=== PATIENT | male | born 1955 | race Caucasian/White ===

== ENCOUNTER 2023-07-18 18:15 | Inpatient (IN) | payer OTHER, SELFPAY ==
--- NOTE | 2023-07-18 | IMM_PTH ---
PATIENT: GABI WALSH LOC: MS3 U#:[id number] AGE/SX: 67/M ROOM: NH314 RE07/19/[address]: Dr. Moo Dumont MD : 1955 BED: 1 DIS: 07/24/2023 SPEC #: [id number] RECD: 07/24/23 13:55 STATUS: NICHOLE REQ #: [id number] LANG: 07/18/23 00:[address]: Moo Dumont DEPT: IMMUNOHISTOCHEMISTRY RECD BY: Jerson Biswas ENTERED: 07/24/23 13:57 SP TYPE: IMMUNO OTHR DR: Dr. Twan Juarez MD Tissues: Colon, NOS Procedures: MSH2 (add) MLH-1 (add) MSH6 (add) Anti-PMS2 (add) CK8 (add) KI-67 (add) P53 (add) Pankeratin (add) MOC-31 (add) HER-2-RIAZ (initial) PHYSICIAN & [address] [address] SPECIMEN INFORMATION: Tissue Source: Right and transverse colon Clinical Info: Colon cancer, Colon obstruction Specimen Number: [id number] Block 6&44 CPT code: 82740,40283f1 METHODOLOGY: Deparaffinized sections of prefer/formalin-fixed tissue or PAP/DQ stained slides are incubated with monoclonal/polyclonal antibodies/oligonucleotide probes. Localization is made via biotin free immunoperoxidase method. Appropriate controls are performed and reacted as expected. Results on target cell population are indicated in the following table: RESULTS: ANTIBODY / CLONE RESULT Block 6 Her-2neu (CB11) negative MOC-31 (4561) positive MLH1 (M1) negative MSH2 (25D12) positive, focal MSH6 (44) positive PMS2 (VNT7883) positive P53 (DO-7) negative,( null pattern) Ki-67 (30-9) positive, high >95% Block 44 AE1-3 (AE1/AE3/PCK26) positive, weak CK8 (64tumtM29) positive These tests were developed and their performance characteristics determined by [facility]. They may not have been cleared or approved by the U.S. Food and Drug Administration. The FDA has determined that such clearance or approval is not necessary. The above immunohistochemical/dualISH markers are ordered and reviewed by the Pathologist. INTERPRETATION: Right and transverse colon: Invasive carcinoma. Result of Microsatellite Instability Study (block #6): Positive (loss of mismatch protein; microsatellite instability detected). Complete loss of MLH1. One out of 5 lymph nodes positive for metastatic carcinoma (block #44J). Case has been reviewed in consultation with Dr. Duckworth who concurs with the above diagnosis. IDC:NOREEN MARTEL/ 07/25/23
--- NOTE | 2023-07-18 | COL._PTH ---
PATIENT: GABI WALSH LOC: MS3 U#:[id number] AGE/SX: 67/M ROOM: AL314 RE07/19/[address]: Dr. Moo Dumont MD : 1955 BED: 1 DIS: 07/24/2023 SPEC #: [id number] RECD: 07/18/23 02:18 STATUS: NICHOLE COLEMAN #: [id number] LANG: 07/18/23 00:[address]: Moo Dumont DEPT: SURGICAL PATHOLOGY RECD BY: Poncho Jo ENTERED: 07/19/23 09:54 SP TYPE: COLON OTHR DR: Dr. Twan Juarez MD Tissues: Colon, NOS Procedures: Surgery Specimen Level HEADER OPERATION: Colectomy Anthony PRE-OP DIAGNOSIS: Colon cancer, Colon obstruction TISSUE SUBMITTED: Right and transverse colon MICROSCOPIC DIAGNOSIS Right and transverse colon, hemicolectomy: Poorly differentiated invasive adenocarcinoma. See cancer summary in comment section. DELONTE/ 07/24/23 COMMENT COLON CANCER SUMMARY Procedure: Hemicolectomy, right and transverse colon Tumor site: Transverse colon Tumor size: 12.0 x 10.0 x 8.0cm Macroscopic tumor perforation: Not identified Histologic type: Adenocarcinoma with focal mucinous differentiation The tumor also shows extensive area of necrosis. Mucinous differentiation consists about <5% of the total tumor volume. Histologic grade: G3 (poorly differentiated) Tumor extension: Tumor invades through the muscularis propria into pericolonic adipose tissue. Margins: Margins are uninvolved by invasive carcinoma, high grade dysplasia, intramucosal adenocarcinoma and adenoma. Tumor is 11.8cm of away from the closest distal resection margin. Treatment effect: No known presurgical treatment therapy Lymphvascular invasion: Not identified Perineural invasion: Not identified Type of polyp in which invasive carcinoma arose: None identified Tumor deposits: Present Number of tumor deposits: 1 Regional lymph nodes: Number of lymph nodes examined: 62 Number of lymph nodes involved: 5 Largest focus of metastasis measures 1.0 x 1.0cm (measure microscopically) Extranodal extension is not identified Ancillary studies: See microsatellite instability study by IHC ([id number]) for complete details. Positive (loss of mismatch protein; microsatellite instability detected). complete loss of MLH1 Additional pathologic findings: Appendix with luminal obliteration. PATHOLOGIC STAGE: pT3 pN2a pMx The above summary is in compliance with [employer] (CAP) Cancer Protocols Checklist and [place] [employer] Committee on Cancer (AJCC), Staging Manual, 8th Ed. Case has been reviewed in consultation with Dr. Duckworth who concurs with the above diagnosis. IDC:AM MICROSCOPIC DESCRIPTION Slides are reviewed. GROSS DESCRIPTION Received fresh labeled with the patient's name is a specimen designated Colon. The specimen consists of 58.5cm of large bowel with attached 17cm small bowel and attached 6.2cm of appendix that has a diameter of 1.0cm. Located 11.8cm from the closest (distal) margin of excision is a large fungating apple core mass bain-grayish in color measuring 12.0 x 10.5 x 8.0cm. No gross perforation is identified. The bowel contains abundant fecal material and is dilated proximal to the mass. No other mucosal mass lesions are identified. The ileocecal valve is grossly unremarkable. Sections through the tumor reveal extension through the bowel wall into the pericolonic adipose tissue. The attached fibrofatty tissue contains a number of enlarged lymph nodes. The specimen is left for additional fixation. / 07/19/23 Sections of appendix reveal luminal obliteration. Section of the tumor reveal focal area of necrosis. Focally the tumor appears to be close to the serosal resection margin. Largest lymph node measures 3.0cm in greatest dimension. Mold Repairer sections are submitted as follows: 1- Proximal and distal resection margins, 2- Appendix, 3- Mold Repairer sections of small and large intestines and ileocecal valve, 4-9- Tumor. Cassettes 7-9 contains the closest serosal resection margin. 10-31-each cassette containing one lymph node,32-34- One serially sectioned lymph node largest lymph node, 35-39- each cassette with one lymph node, 40-45- Multiple lymph nodes, 46-Omentum, 47- Indurated area of pericolonic adipose tissue. / 07/20/23 TC:0 CPT: 75306
[2023-07-18 18:15] VITALS: BP 175/111; PULSE 100; RESP 18; TEMP 530.9; TEMP 987.7; O2SAT 98; BMI 32.0
--- NOTE | 2023-07-18 18:42 | CT_ITS ---
We are attempting to reach an attending provider to discuss findings. An addendum with communication details will be sent when the communication is complete. STUDY: CT ABDOMEN AND PELVIS WITH CONTRAST REASON FOR EXAM: Male, 67 years old. abd pain with known r-sided colon cancer RADIATION DOSAGE (If Supplied By Facility): CTDIvol = ( 16.06 ) mGy, DLP = ( 1264.07 ) mGycm TECHNIQUE: Transaxial images were obtained from the dome of the diaphragm to the symphysis pubis without oral contrast. IV 100mL Isovue-300 was administered. Sagittal and coronal images were reconstructed. Individualized dose optimization techniques were used for this CT. COMPARISON: None. FINDINGS: The visualized lung bases are unremarkable. The visualized portions of the heart are within normal limits. Normal liver. Normal gallbladder and extrahepatic biliary system. Normal spleen. Normal pancreas. Normal bilateral adrenal glands. Normal right kidney. Normal left kidney. Normal visualized stomach. There are multiple loops of mildly distended small bowel and ascending proximal to a loop demonstrating severe concentric thickening of the cabrera of the proximal transverse colon with narrowing of the lumen in association with a large mass measuring approximately 9.1 x 5.8 cm with extensive stranding in the fat. There also multiple mildly enlarged mesenteric nodes. No evidence for acute appendicitis.. Normal abdominal aorta. Normal inferior vena cava. Normal retroperitoneum. Normal urinary bladder. Amount of fluid noted within the pelvis. Bilateral fat-containing inguinal hernias. Lumbar spine demonstrates degenerative changes. CT/Abdomen/Pelvis W IV Cont ONLY IMPRESSION: Findings consistent with partially obstructing mass in the proximal transverse colon may be consistent with carcinoma in association with mesenteric adenopathy and moderate amount of ascites Electronically Signed: Star Gamble MD at 20:21 EDT ,
--- NOTE | 2023-07-18 18:43 | EDS_ITS ---
HPI HPI - GI History of Present Illness Chief Complaint: Abd Pain Informant: patient and spouse/S.O. Abdominal Pain/Flank Pain Onset: Today Timing: Intermittent Location: Diffuse and RUQ Current Severity: Mild Maximum Severity: Moderate Worsened by: Nothing Relieved by: Nothing Nausea/Vomiting/Emesis GI Symptom: Negative for Nausea or Vomiting Diarrhea/Melena/Hematochezia GI Symptom: Negative for Diarrhea, Melena or Hematochezia Associated Symptoms Associated Symptoms: Negative for Dysuria, Frequency, Hematuria or Urgency Narrative Narrative: 67-year-old male known history of right-sided colon cancer has upcoming surgery at [facility] in the system in 2 weeks on July 29. Basically developed abdominal pain last night and this morning. Denies any dysuria. No nausea or vomiting. No fever. No dysuria. He did have a bowel movement last 24 hours. Prior similar symptoms: Yes Recent Illness/Hospitalization: No PFSH PFSH Home Medications ascorbic acid (vitamin C) 1,000 mg tablet (C-1000) 2 g PO DAILY 07/18/23 [History Last Taken Unknown] cholecalciferol (vitamin D3) 25 mcg (1,000 unit) capsule (Vitamin D3) 125 mcg PO DAILY 07/18/23 [History Last Taken Unknown] iron 50 mg iron tablet 1 tab PO DAILY 07/18/23 [History Last Taken Unknown] pantoprazole 40 mg tablet,delayed release 40 mg PO QPM PRN indigestion 07/18/23 [History Last Taken Unknown] pyridoxine (vitamin B6) 100 mg tablet (Vitamin B-6) 100 mg PO DAILY 07/18/23 [History Last Taken Unknown] selenium 200 mcg capsule 200 mcg PO DAILY 07/18/23 [History Last Taken Unknown] Allergy/AdvReac Type Severity Reaction Status Date / Time No Known Allergies Allergy Verified 07/18/23 18:18 Social History Smoking Status: Never smoker ROS ROS ED ROS Narrative Abdominal pain. Review of Systems ROS Unobtainable: Denies due to encephalopathy Constitutional Constitutional ED: Denies chills or fever(s) ENT ENT ED: Denies ear pain Cardiovascular Cardiovascular: Denies chest pain Respiratory/Chest Respiratory/Chest: Denies cough or dyspnea Gastrointestinal Gastrointestinal: Reports abdominal pain; Denies constipation, diarrhea, melena, nausea or vomiting Genitourinary Genitourinary ED: Denies dysuria or hematuria Musculoskeletal Musculoskeletal: Denies arthralgias, back pain, myalgias or neck pain Integumentary Denies abscess or Abrasions Neurologic Neurologic: Denies headache(s) Psychiatric Psychiatric: Denies anxiety Endocrine Endocrinology: Denies polydipsia Hematologic/Lymphatic Hematologic/Lymphatic: Denies easy bleeding Allergic/Immunologic Allergic/Immunologic ED: Denies mouth swelling, tongue swelling or urticaria EXAM Physical Exam Narrative Exam Narrative: Well-appearing 67-year-old male. Vital signs are stable afebrile. Initial blood pressure elevated 175/111. HEENT exam unremarkable. Neck nontender. Lungs clear to auscultation bilaterally. Heart regular rhythm no murmur. Rate about 100. Abdomen distended. Soft. Tender in the right side. No peritoneal signs. No hernia appreciated. Moving all 4 extremities. Nontender no edema. Neurologically patient is awake alert no focal motor deficits. Moving all 4 extremities.. Nontender no edema. Neurologically is awake alert no focal motor deficits. Const Vital Signs: 07/18/23 18:15 07/18/23 20:15 07/18/23 22:00 Temperature 987.7 F H Temperature Source Temporal Pulse Rate 100 80 91 Respiratory Rate 18 16 14 Blood Pressure 175/111 H 175/103 H 153/103 H Blood Pressure Mean 132 127 119 Pulse Ox 98 97 93 Oxygen Delivery Method Room Air Room Air Room Air 07/18/23 22:34 Temperature 98.1 F Temperature Source Pulse Rate 90 Respiratory Rate 17 Blood Pressure 165/97 H Blood Pressure Mean 119 Pulse Ox 94 Oxygen Delivery Method Positive well nourished and well developed; Negative for cachectic, contractures or unkempt General Appearance ED: well developed and NAD; Negative for unkempt, cachectic, contractures or pallor Nutritional Appearance: Negative for cachectic HEENT Reports moist mucous membranes; Denies dry mucous membranes normocephalic and atraumatic; Negative for trauma or tenderness Mouth ED: No dry mucous membranes Mouth: No dry mucous membranes Eyes PERRL and EOMs intact bilaterally General Eye ED: Negative for pale conjunctiva or scleral icterus Neck no lymphadenopathy, supple and no JVD General: Negative for tenderness Carotids: Negative for other Lymph Lymphatic: Negative for other Resp normal respiratory effort and clear to auscultation bilaterally Effort and Inspection: Negative for respiratory distress Auscultation: Negative for rales, rhonchi or wheezes Cardio regular rate, regular rhythm, S1 normal heart sound and no murmurs Rate: Negative for bradycardia or tachycardic Rhythm: Negative for abnormal rhythm GI Negative for non-tender or non-distended Inspection: abdominal distention Palpation: soft and tender; Negative for guarding or rebound tenderness present Back/Spine no CVA tenderness General Back: Negative for CVA tenderness Cervical Spine: Negative for cervical spine tenderness Thoracic Spine / Upper Back: Negative for thoracic spinal tenderness Lumbar Spine / Lower Back: Negative for lumbar spinal tenderness Extremity full ROM General Extremety ED: Negative for edema or tenderness General Extremity: Negative for edema Neuro CN's II-XII intact bilaterally and moves all extremities Sensorium / Orientation: alert, oriented to person, oriented to place and oriented to time; Negative for orientation impaired, confused, lethargic or stuporous Motor Exam: strength 5/5 throughout; Negative for general weakness or strength abnormal Psych mental status grossly normal and thought process normal Appearance: Negative for unkempt Attitude: No agitated Mood & Affect: Negative for depressed, anxious or tearful Skin no wounds General Skin Exam: Negative for jaundice or pallor Lesions: no lesions Rashes: no rashes Trauma: Negative for abrasion Nails: Negative for discolored MDM MDM MDM Narrative Medical decision making narrative: 67-year-old male with known right; CEA pending upcoming surgery on the . Complaining of abdominal pain tonight. CAT scan labs are pending. Currently he did not want a thing for pain or nausea. Repeat exam patient is resting comfortably at this time at 9:15 PM. I am trying to get a hold of his surgeon from [facility] a Dr. Jimmy Carbone. I was able to speak to Dr. Carbone. He was willing accept the patient to [facility]. [facility] currently has no beds and do not know when they will have bed availability. I spoke to my general surgeon here Dr. Moo Rain who will be in to evaluate the patient determine admission versus if he needs to do a surgical procedure on the patient tonight. Patient and his are aware they are comfortable with the plan. History & Record Review Discussion w/independent historian: Patient and Family Additional record(s) reviewed:: No prior records Lab Data Attestation: I reviewed the patient's lab results. Lab results narrative: CBC shows white count 13.1. H&H 10.6 and 33. I do not have old labs in our system for comparison. Platelets 470. Electrolytes show gap is 7. Normal BUN of 12 creatinine 0.9. Glucose 123. Liver enzymes normal. Lipase normal at 31. CAT scan of the abdomen shows a colonic mass with partial small bowel obstruction. I discussed this with the radiologist. Labs: Laboratory Results - last 24 hr 07/18/23 19:10 WBC 13.1 H RBC 4.14 L Hgb 10.6 L Hct 33.0 L MCV 79.7 L MCH 25.6 L MCHC 32.1 RDW Std Deviation 41.1 RDW Coeff of Ayaka 14.3 Plt Count 470 H MPV 8.3 Immature Gran % (Auto) 0.500 Neut % (Auto) 84.2 H Lymph % (Auto) 8.2 L Becker % (Auto) 6.0 Eos % (Auto) 0.6 Baso % (Auto) 0.5 Absolute Neuts (auto) 11.1 H Absolute Lymphs (auto) 1.07 Nucleated RBC % 0 Sodium 136 Potassium 3.9 Chloride 101 Carbon Dioxide 28.0 Anion Gap 7 BUN 12 Creatinine 0.90 Estim Creat Clear Calc 99.21 Est GFR (MDRD) Af Amer 109 Est GFR (MDRD) Non-Af 90 BUN/Creatinine Ratio 13.4 Glucose 123 H Calcium 9.0 Total Bilirubin 0.30 AST 24 ALT 30 Alkaline Phosphatase 73 Total Protein 6.8 Albumin 2.8 L Globulin 4.0 Albumin/Globulin Ratio 0.7 L Lipase 31 Radiography Diagnostic Testing: Clinical Impression(s) from Imaging Studies Abdomen/Pelvis CT 07/18/23 18:42 IMPRESSION: Findings consistent with partially obstructing mass in the proximal transverse colon may be consistent with carcinoma in association with mesenteric adenopathy and moderate amount of ascites Electronically Signed: Star Gamble MD at 20:21 EDT , ADDENDUM: 07/18/232051 IMPRESSION: Findings consistent with partially obstructing mass in the proximal transverse colon may be consistent with carcinoma in association with mesenteric adenopathy and moderate amount of ascites N.B. : The above Results were Read Back by Star Gamble MD to Polo Sanders MD, and understanding confirmed on 07/18/2023 20:45:07 (ET). Electronically Signed: Star Gamble MD at 20:21 EDT , Rhythm Strip Rhythm Strip: Sinus Rhythm Rate: 96 Ectopy: None EKG Initial EKG: Attestation: I personally reviewed and interpreted this EKG as follows: Interpretation: Sinus Rhythm and No Acute Injury Pattern Comments: Preop EKG. Patient going to the OR. Normal sinus rhythm. Rate of 96. No acute signs of IA nor ischemia nor dysrhythmia. Prior EKG tracings: not available for review Prior: No Prior Discharge Plan Dx/Rx/DC Orders Clinical Impression: Colon cancer, Abdominal pain, Partial obstruction of small intestine, Colon obstruction Disposition Disposition: Acute Care [facility], [place]
[2023-07-18 19:15] LABS: Absolute Lymphocyte Count 1.07 X10^3/uL (0.83-4.51); Absolute Neutrophil Count 11.1 X10^3/uL (2.0-7.7); Basophil# 0.06 X10^3/uL; Basophil% 0.5 % (0-1); Eosinophil# 0.08 X10^3/uL; Eosinophils% 0.6 % (0-5); Hemoglobin 10.6 g/dL (13.0-16.5); Lymphocyte # 1.07 X10^3/ul (0.83-4.51); Lymphocyte % 8.2 % (19-41); Mean Corp Hgb Conc 32.1 g/dL (32-36); Mean Corpuscular Hgb 25.6 pg (27.0-32.0); Mean Corpuscular Volume 79.7 fL (80-94); Mean Platelet Vol. 8.3 fl (6.2-12.0); Monocyte# 0.79 X10^3/uL; NRBC Flagged by Analyzer 0 % (0-5); Neutrophil # 11.05 X10^3/uL (2.7-7.7); Neutrophil % 84.2 % (47-70); Platelet Count 470 K/mm3 (150-450); RBC Distribution Width CV 14.3 % (11.6-14.6); RBC Distribution Width SD 41.1 fl (35.1-43.9); Red Blood Count 4.14 M/mm3 (4.6-6.2); White Blood Count 13.1 K/mm3 (4.4-11.0)
[2023-07-18 19:32] LABS: ALB/GLOB Ratio 0.7 RATIO (0.9-2.4); AST(SGOT) 24 U/L (15-37); Alanine Aminotransfer ALT/SGPT 30 U/L (16-61); Albumin, Serum 2.8 g/dL (3.2-5.0); Alkaline Phosphatase 73 U/L (45-117); Anion Gap 7 (5-15); BUN 12 mg/dL (7-18); BUN/Creat Ratio 13.4 RATIO (10-20); Chloride 101 mmol/L (98-107); EST Glomerular Filtration Rate 90 mL/min (>60); Est Glom Filt Rate - Afr Amer 109 mL/min (>60); Estimated Creatinine Clearance 99.21 ml/min; Glucose 123 mg/dL (74-106); Lipase 31 U/L (13-75); Potassium 3.9 mmol/L (3.5-5.1); Protein, Total 6.8 g/dL (6.4-8.2); Sodium Level 136 mmol/L (136-145)
[2023-07-18 20:15] VITALS: BP 175/103; PULSE 80; RESP 16; O2SAT 97
[2023-07-18 22:00] VITALS: BP 153/103; PULSE 91; RESP 14; O2SAT 93
--- NOTE | 2023-07-18 22:23 | EKG12_ITS ---
Test Reason : ABD PAIN Blood Pressure : / mmHG Vent. Rate : 096 BPM Atrial Rate : 096 BPM P-R Int : 146 ms QRS Dur : 090 ms QT Int : 354 ms P-R-T Axes : 044 -14 032 degrees QTc Int : 447 ms Normal sinus rhythm Septal infarct , age undetermined Abnormal ECG Confirmed by ASHELY LOVE, MELLY ([id number]), editor managing director DAKOTA GASCA ([id number]) on 07/20/2023 9:09:40 AM Referred By: Moo Dumont Confirmed By:MELLY LUND MD
[2023-07-18 22:34] VITALS: BP 165/97; PULSE 90; RESP 17; TEMP 36.7; O2SAT 94
[2023-07-18 22:44] VITALS: BP 165/97; PULSE 94; RESP 18; TEMP 37.1; O2SAT 95; BMI 32.0
[2023-07-18 22:59] LABS: International Normalized Ratio 1.1; Prothrombin Time (Protime)PT. 14.1 SECONDS (11.7-14.9)
--- NOTE | 2023-07-18 23:43 | HP.PCM.SX_ITS ---
HPI - General HPI Narrative KAMARI WALSH, is a 67 M who presents with increasing abdominal pain. The patient has known cancer of the transverse colon. He was scheduled for surgery in 2 weeks. The patient reports he started having worsening pain and has not been passing gas and started having a lot more belching and bloating. He denies fevers or chills. His abdominal pain is diffuse. PFS Home Medications ascorbic acid (vitamin C) 1,000 mg tablet (C-1000) 2 g PO DAILY 07/18/23 [History Last Taken Unknown] cholecalciferol (vitamin D3) 25 mcg (1,000 unit) capsule (Vitamin D3) 125 mcg PO DAILY 07/18/23 [History Last Taken Unknown] iron 50 mg iron tablet 1 tab PO DAILY 07/18/23 [History Last Taken Unknown] pantoprazole 40 mg tablet,delayed release 40 mg PO QPM PRN indigestion 07/18/23 [History Last Taken Unknown] pyridoxine (vitamin B6) 100 mg tablet (Vitamin B-6) 100 mg PO DAILY 07/18/23 [History Last Taken Unknown] selenium 200 mcg capsule 200 mcg PO DAILY 07/18/23 [History Last Taken Unknown] Allergy/AdvReac Type Severity Reaction Status Date / Time No Known Allergies Allergy Verified 07/18/23 18:18 Social History Smoking Status: Never smoker ROS Constitutional Constitutional: Denies anorexia, chills, fatigue or fever(s) Eyes Eyes: Denies blurry vision ENT HEENT: Denies abnormal hearing Cardiovascular Cardiovascular: Denies chest pain Respiratory/Chest Respiratory/Chest: Denies cough or dyspnea Gastrointestinal Gastrointestinal: Reports abdominal pain, constipation and nausea; Denies hematemesis or vomiting Genitourinary Genitourinary: Denies change in urinary stream Musculoskeletal Musculoskeletal: Denies abnormal gait Integumentary Integumentary: Denies jaundice Neurologic Neurologic: Denies dizziness Psychiatric Psychiatric: Denies anxiety Endocrine Endocrinology: Denies heat intolerance Hematologic/Lymphatic Hematologic/Lymphatic: Denies easy bleeding Vital Signs Vital Signs Vital Signs: 07/18/23 18:15 07/18/23 20:15 07/18/23 22:00 Temperature 987.7 F H Temperature Source Temporal Pulse Rate 100 80 91 Respiratory Rate 18 16 14 Blood Pressure 175/111 H 175/103 H 153/103 H Blood Pressure Mean 132 127 119 Pulse Ox 98 97 93 Oxygen Delivery Method Room Air Room Air Room Air 07/18/23 22:34 07/18/23 22:44 Temperature 98.1 F 98.7 F Temperature Source Axillary Pulse Rate 90 94 Respiratory Rate 17 18 Blood Pressure 165/97 H 165/97 H Blood Pressure Mean 119 119 Pulse Ox 94 95 Oxygen Delivery Method Weight Weight: 229 lb 12.8 oz Body Mass Index (BMI) 32.0 Physical Exam Const oriented x3 and no apparent distress Resp normal respiratory effort Cardio regular rate and regular rhythm GI soft to palpation Inspection: abdominal distention Palpation: tender LLQ and RUQ Extremity normal to inspection Results Lab / Micro Data 07/18/23 19:10 07/18/23 19:10 Labs: Laboratory Results - last 24 hr 07/18/23 19:10: WBC 13.1 H, RBC 4.14 L, Hgb 10.6 L, Hct 33.0 L, MCV 79.7 L, MCH 25.6 L, MCHC 32.1, RDW Std Deviation 41.1, RDW Coeff of Ayaka 14.3, Plt Count 470 H, MPV 8.3, Immature Gran % (Auto) 0.500, Neut % (Auto) 84.2 H, Lymph % (Auto) 8.2 L, Martin % (Auto) 6.0, Eos % (Auto) 0.6, Baso % (Auto) 0.5, Absolute Neuts (auto) 11.1 H, Absolute Lymphs (auto) 1.07, Nucleated RBC % 0, Sodium 136, Potassium 3.9, Chloride 101, Carbon Dioxide 28.0, Anion Gap 7, BUN 12, Creatinine 0.90, Estim Creat Clear Calc 99.21, Est GFR (MDRD) Af Amer 109, Est GFR (MDRD) Non-Af 90, BUN/Creatinine Ratio 13.4, Glucose 123 H, Calcium 9.0, Total Bilirubin 0.30, AST 24, ALT 30, Alkaline Phosphatase 73, Total Protein 6.8, Albumin 2.8 L, Globulin 4.0, Albumin/Globulin Ratio 0.7 L, Lipase 31 07/18/23 22:32: Blood Type A POSITIVE, Antibody Screen NEGATIVE 07/18/23 22:38: PT 14.1, INR 1.1 Rhythm Strip Rhythm Strip: Sinus Rhythm Rate: 96 Ectopy: None Imaging Radiology Impression Abdomen/Pelvis CT 07/18/23 18:42 IMPRESSION: Findings consistent with partially obstructing mass in the proximal transverse colon may be consistent with carcinoma in association with mesenteric adenopathy and moderate amount of ascites Electronically Signed: Star Gamble MD at 20:21 EDT , ADDENDUM: 07/18/232051 IMPRESSION: Findings consistent with partially obstructing mass in the proximal transverse colon may be consistent with carcinoma in association with mesenteric adenopathy and moderate amount of ascites N.B. : The above Results were Read Back by Star Gamble MD to Polo Sanders MD, and understanding confirmed on 07/18/2023 20:45:07 (ET). Electronically Signed: Star Gamble MD at 20:21 EDT , Assessment & Plan Assessment/Plan (1) Colon cancer: QUALIFIERS: Colon location: transverse Qualified Code(s): C18.4 - Malignant neoplasm of transverse colon (2) Colon obstruction: PLAN: Plan The patient has known colon cancer of the transverse colon which is causing obstruction. The patient started having increasing pain and he came in a CT scan showed partial obstruction of the transverse colon but this seems to be a large caliber change as well. I also see some bubbles in the dependent portion of the cecum, and concern for pneumatosis due to distention of the cecum. The patient is tender. I discussed his diagnosis with him. We called his surgeon but there are no beds at his hospital. The patient did consent to stay here. I discussed open right hemicolectomy with the patient. I discussed the procedure in detail. I discussed the risks including but not limited to bleeding, infection, injury other organs such as the bowel, bladder, ureter or kidney. Patient understands all the risks and is willing to proceed with surgery. Moo Dumont MD Pager: [facility] [address] [place] [address], [address] [place] [address] Office:
[2023-07-19] VITALS (13 sets, daily range): BP systolic 134–165; BP diastolic 75–97; PULSE 72–89; RESP 16–18; TEMP 36.4–37; O2SAT 90–97; BMI 30.4
[2023-07-19] MEDS: Cefotetan 2 GM in 0.9% Normal Saline (100mL MB+) 100 ML IV (00:16)
[2023-07-19] MEDS: Bupivacaine Mpf 0.5% 30 ML VIAL (00:20)
--- NOTE | 2023-07-19 02:27 | OP.PCM_ITS ---
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 A Brito catheter was placed into the bladder and clear urine was returned. Next the abdomen and pelvis were draped and prepped in usual sterile fashion. A midline incision was marked and then injected with local anesthetic. Midline incision was made with a scalpel and deepened to the fascia. The fascia was elevated and incised and a finger was inserted into the abdomen and used to protect the bowel. Electrocautery was used to open the fascia inferiorly and superiorly. Wound protector was placed. The mass was very large and adherent to the anterior abdominal wall with inflammation. It did not seem to be invading the wall. The patient also had a very distended cecum and ascending colon with some necrosis on the lateral cecum. Next the distal transverse colon was identified and the was preserved. Just proximal to the middle colic vessel left middle colic vessel Awender was made in the mesentery and a 75 JUSTINA stapler was used to divide the transverse colon about 10 cm distal to the mass. Next the mesentery was addressed and followed backward. The right middle colic pedicle was surrounded with a clamp and then suture-ligated using 0 silk suture. The mesentery was then dissected further. Next the lesser sac was entered using the LigaSure. It was followed to the hepatic flexure. The he patic flexure was freed using electrocautery and blunt dissection. After the hepatic flexure was freed up the white line of Toldt down the right side of the colon was freed up as well. There was a lot of edema and inflammation in the cecum area. Once the cecum was mobilized it was delivered into the incision. Dissection was carried on the mesentery further proximally until the right colic pedicle was identified. In the same fashion this was suture-ligated with 0 silk suture. There was good hemostasis on all the pedicles. Next dissection was carried more inferiorly and the ileocolic pedicle was encountered and suture- ligated using 0 silk suture. There was good hemostasis. Next after freeing up the proximal 10 cm of terminal ileum the ileum was divided using a JUSTINA stapler. An LigaSure impact was used to take down the mesentery back until where the ileocolic pedicle was. The specimen was removed and sent for pathology. The staple lines were both inspected and had good blood flow. Next the corner of each staple line was removed and a JUSTINA stapler was placed into the transverse colon as well as the terminal ileum and they were stable together in a [id number] functional end-to-end fashion. 3-0 silk suture was used to maintain hemostasis on the staple line. A 3-0 silk suture was used to make a crotch suture. Next a 3-0 Vicryl suture was used to reapproximate the mesen teric defect as much as possible. Next the wound protector was removed and all staff changed gown and gloves. Next the abdomen was irrigated copiously and suctioned dry. There was good hemostasis throughout the abdomen. Next the fascia was closed from the top and bottom in a running fashion with a #1 PDS suture meeting in the middle. The subcutaneous tissue was irrigated and suctioned dry. The skin was closed with interrupted 4-0 Monocryl sutures and Steri-Strips and bandages were then applied. Patient was awoken and taken to PACU in stable condition with Brito in place. Admit VTE Documentation VTE Mechan Device Prophylaxis: SCD's
[2023-07-19] MEDS: Acetaminophen 500 MG Tablet 1000 MG PO ×4 (03:57→23:17)
[2023-07-19] MEDS: Ketorolac 15 MG/ML Vial IV ×4 (03:57→23:17)
[2023-07-19] MEDS: 0.9% Saline Lock 10 ML Syringe IV ×4 (03:57→22:58)
[2023-07-19] MEDS: Lactated Ringers 1,000 ML 100 ML IV ×2 (03:58→10:54)
[2023-07-19] MEDS: Ondansetron ODT 4 MG Tablet PO (05:54)
[2023-07-19] MEDS: oxyCODONE 5 MG Tablet PO ×2 (05:54→10:51)
[2023-07-19 07:13] LABS: Hemoglobin 10.5 g/dL (13.0-16.5); Mean Corp Hgb Conc 31.8 g/dL (32-36); Mean Corpuscular Hgb 25.8 pg (27.0-32.0); Mean Corpuscular Volume 81.1 fL (80-94); Mean Platelet Vol. 8.4 fl (6.2-12.0); Platelet Count 476 K/mm3 (150-450); RBC Distribution Width CV 14.4 % (11.6-14.6); RBC Distribution Width SD 42.5 fl (35.1-43.9); Red Blood Count 4.07 M/mm3 (4.6-6.2); White Blood Count 23.3 K/mm3 (4.4-11.0)
[2023-07-19 07:57] LABS: Anion Gap 6 (5-15); BUN 16 mg/dL (7-18); BUN/Creat Ratio 12.6 RATIO (10-20); Calcium,Total 8.3 mg/dL (8.5-10.1); Chloride 106 mmol/L (98-107); Creatinine, Serum 1.27 mg/dL (0.70-1.30); EST Glomerular Filtration Rate 60 mL/min (>60); Est Glom Filt Rate - Afr Amer 73 mL/min (>60); Estimated Creatinine Clearance 68.55 ml/min; Glucose 154 mg/dL (74-106); Potassium 3.9 mmol/L (3.5-5.1); Sodium Level 136 mmol/L (136-145)
[2023-07-19] MEDS: 0.9% Normal Saline (1000mL) 1,000 ML 999 ML IV (09:53)
[2023-07-19] MEDS: Docusate Sodium 100 MG Capsule PO ×2 (09:53→22:54)
--- NOTE | 2023-07-19 12:56 | PCM.PN.SRG ---
Subjective Subjective The patient is having some pain with moving around. He is not passing any gas yet. He denies any nausea or vomiting. Objective Data Objective Data Vital Signs: Vital Signs Temp Pulse Resp BP Pulse Ox O2 Del Method O2 Flow Rate 97.8 F 87 16 144/77 H 95 Nasal Cannula 2 07/19/23 07:46 07/19/23 07:46 07/19/23 07:46 07/19/23 07:46 07/19/23 07:46 07/19/23 07:46 07/19/23 07:46 Oxygen Flow Rate (L/min) 2 Oxygen Delivery Method Nasal Cannula Weight: 217 lb 13.067 oz Body Mass Index (BMI) 30.4 Intake & Output: Intake and Output for Last 24 Hours 07/17/23 07/18/23 07/19/23 23:59 23:59 23:59 Intake Total 1791.67 / 1791.67 Output Total 560 / 560 Balance 1231.67 / 1231.67 Lab / Micro Data 07/19/23 06:31 07/19/23 06:31 Labs: Laboratory Results - last 24 hr 07/18/23 19:10: WBC 13.1 H, RBC 4.14 L, Hgb 10.6 L, Hct 33.0 L, MCV 79.7 L, MCH 25.6 L, MCHC 32.1, RDW Std Deviation 41.1, RDW Coeff of Ayaka 14.3, Plt Count 470 H, MPV 8.3, Immature Gran % (Auto) 0.500, Neut % (Auto) 84.2 H, Lymph % (Auto) 8.2 L, [place] % (Auto) 6.0, Eos % (Auto) 0.6, Baso % (Auto) 0.5, Absolute Neuts (auto) 11.1 H, Absolute Lymphs (auto) 1.07, Nucleated RBC % 0, Sodium 136, Potassium 3.9, Chloride 101, Carbon Dioxide 28.0, Anion Gap 7, BUN 12, Creatinine 0.90, Estim Creat Clear Calc 99.21, Est GFR (MDRD) Af Amer 109, Est GFR (MDRD) Non-Af 90, BUN/Creatinine Ratio 13.4, Glucose 123 H, Calcium 9.0, Total Bilirubin 0.30, AST 24, ALT 30, Alkaline Phosphatase 73, Total Protein 6.8, Albumin 2.8 L, Globulin 4.0, Albumin/Globulin Ratio 0.7 L, Lipase 31 07/18/23 22:32: Blood Type A POSITIVE, Antibody Screen NEGATIVE 07/18/23 22:38: PT 14.1, INR 1.1 07/19/23 06:31: WBC 23.3 H, RBC 4.07 L, Hgb 10.5 L, Hct 33.0 L, MCV 81.1, MCH 25.8 L, MCHC 31.8 L, RDW Std Deviation 42.5, RDW Coeff of Ayaka 14.4, Plt Count 476 H, MPV 8.4, Sodium 136, Potassium 3.9, Chloride 106, Carbon Dioxide 24.0, Anion Gap 6, BUN 16, Creatinine 1.27, Estim Creat Clear Calc 68.55, Est GFR (MDRD) Af Amer 73, Est GFR (MDRD) Non-Af 60, BUN/Creatinine Ratio 12.6, Glucose 154 H, Calcium 8.3 L Radiography Diagnostic Testing: Radiology Impression Abdomen/Pelvis CT 07/18/23 18:42 IMPRESSION: Findings consistent with partially obstructing mass in the proximal transverse colon may be consistent with carcinoma in association with mesenteric adenopathy and moderate amount of ascites Electronically Signed: Star Gamble MD at 20:21 EDT Reading Location ID and State: [facility] / [place] Tel [phone], Service support , ADDENDUM: 07/18/232051 IMPRESSION: Findings consistent with partially obstructing mass in the proximal transverse colon may be consistent with carcinoma in association with mesenteric adenopathy and moderate amount of ascites N.B. : The above Results were Read Back by Star Gamble MD to Polo Sanders MD, and understanding confirmed on 07/18/2023 20:45:07 (ET). Electronically Signed: Star Gamble MD at 20:21 EDT , Rhythm Strip Rhythm Strip: Sinus Rhythm Rate: 96 Ectopy: None Physical Exam Const oriented x3 and no apparent distress Resp normal respiratory effort GI soft to palpation Inspection: Negative for abdominal distention Palpation: tender Assessment & Plan Assessment/Plan (1) Colon obstruction: (2) Colon cancer: QUALIFIERS: Colon location: transverse Qualified Code(s): C18.4 - Malignant neoplasm of transverse colon PLAN: Plan The patient had a colon obstruction due to colon cancer. He was taken for laparotomy overnight. He had a an extended right hemicolectomy with anastomosis. There was no purulence inside the abdomen but the colon was gangrenous. The patient's white count did increase today but this may be reactive but I will resume some antibiotics until tomorrow's white count. I will also remove the patient's Brito as his urine output has helped. I gave him a fluid bolus for increased creatinine this morning. Continue IV fluids until tolerating a diet and passing gas. Moo Dumont MD Pager: [facility] [address] [place] [address], [address] [place] [address] Office:
--- NOTE | 2023-07-19 13:30 | CASEMGMT ---
RN?CM?PAPETERIE TABLE ASSEMBLER?CM?to room to meet with patient for initial transition planning/care coordination?assessment.?RN?CM?introduced self and role at [facility].? Pt voices understanding and consents to?assessment?at this time.? Pt resting in bed in no distress at this time.? Pt is A/O at this time and answers all questions appropriately.?? Care providers, pharmacy, and demographics verified/updated at this time. PCP: Specialists: Preferred Pharmacy: Insurance: Prescription Benefit:? Living Will/HPOA:? Pt does not currently have LW/HCPOA and declines info at this time.? Pt made aware that he can contact SW as an out-pt and make appt in the future if he decides he would like to talk with someone about this or would like to utilize [facility] social work for advanced directive completion.? Given [employer] card with information and contact number. Pt expresses understanding.? States does not have LW or HCPOA .? Interested in more information but states does not want to talk with at this time to complete paperwork.? Provided information on advanced directives and given [employer] rac card with number to call if chooses in the future to utilize [facility] social work for advanced directive completion. Educated patient that, if patient so chooses, can come back to [facility] and meet with a SW as an outpatient to complete health care advanced directives. Patient expresses understanding. LNOK: Living Arrangements: Transportation:?Pt states drives self and states no transportation concerns at this time.? DME: ? Denies using any DME and denies needs.? States has the following DME:? Pt states no need for further DME at this time.? HHC/SNF: Pt wishes to return home and states has no concerns with going home at time of discharge.? Pt states does not smoke or drink ETOH. ?CM?to follow for home oxygen needs and any further discharge planning/needs.? Pt voices no further concerns/needs at this time.? Advised pt to ask for?CM?if any further questions/concerns/needs arise.? Voices understanding. PLAN:?? Cinthia BSN?RN?CM
--- NOTE | 2023-07-19 13:30 | CASEMGMT ---
RN?CM?SITE MEDICAL DIRECTOR?CM?to room to meet with patient for initial transition planning/care coordination?assessment.?RN?CM?introduced self and role at [facility].? Pt voices understanding and consents to?assessment?at this time.? Pt resting in bed in no distress at this time.? Pt is A/O at this time and answers all questions appropriately.?? Care providers, pharmacy, and demographics verified/updated at this time. PCP: Dr Twan Juarez Specialists: Dr Carbone--surgeon @ [facility] () Preferred Pharmacy: [facility] Retail Insurance: Self Pay/ER deposit @ [facility]. Pt has [employer] ([employer]) through his muslim and they will reimburse some medical expenses. Prescription Benefit:?None Living Will/HPOA:? Pt does not currently have LW/HCPOA and interested in completing. SW, Dionne, made aware. Pt made aware if SW unavailable to complete AD while @ [facility] that this can be done as an OP. LNOK: , Maddison. 4 adult children Living Arrangements: Lives w/his in one-story home w/basement and 2 steps to enter. Denies difficulty w/stairs. Pt is independent w/ADL's. manages his medications and does the home mgnt tasks. Transportation:?Pt states drives self and states no transportation concerns at this time.? also drives. DME: ? Denies using any DME and denies needs.? He does have the following available, but does not use: BSC, cane, crutches, walker, BP machine. No home O2. If he would qualify for O2 @ dc, he states no preference of DME co, made aware [employer] is affiliated w/[facility], and states okay w/[employer]. HHC/SNF: No hx of either. Pt denies needs. Pt wishes to return home and states has no concerns with going home at time of discharge.? ?CM?to follow for any further discharge planning/needs.? Pt voices no further concerns/needs at this time.? Advised pt to ask for?CM?if any further questions/concerns/needs arise.? Voices understanding. PLAN:??Home Follow therapy. Cinthia BSN?RN?CM
[2023-07-19] MEDS: 0.9% Normal Saline (1000mL) 1,000 ML 100 ML IV (14:47)
[2023-07-19] MEDS: Piperacil/Tazobactam 3.375 GM in 0.9% Normal Saline (50mL MB+) 50 ML IV ×2 (14:47→22:54)
[2023-07-20] VITALS (7 sets, daily range): BP systolic 130–166; BP diastolic 69–87; PULSE 87–97; RESP 16–18; TEMP 36.7–37.2; O2SAT 92–95
[2023-07-20] MEDS: 0.9% Normal Saline (1000mL) 1,000 ML 100 ML IV ×3 (00:46→22:57)
[2023-07-20] MEDS: oxyCODONE 5 MG Tablet PO (04:10)
[2023-07-20] MEDS: Pantoprazole Sodium 40 MG Tablet PO (04:10)
[2023-07-20] MEDS: Acetaminophen 500 MG Tablet 1000 MG PO ×4 (07:00→22:57)
[2023-07-20] MEDS: Ketorolac 15 MG/ML Vial IV ×2 (07:00→12:30)
[2023-07-20] MEDS: Piperacil/Tazobactam 3.375 GM in 0.9% Normal Saline (50mL MB+) 50 ML IV (07:00)
[2023-07-20] MEDS: 0.9% Saline Lock 10 ML Syringe IV (07:03)
--- NOTE | 2023-07-20 07:34 | PN.SURG_ITS ---
Subjective Subjective Patient seen and examined during AM rounds. Found resting in bed. He reports that he has already been up walking this morning. He denies any flatus and states that he is having occasional belching with some hiccuping. He complains that coughing remains difficult despite trying to use splinting techniques. Objective Data Objective Data Vital Signs: Vital Signs Temp Pulse Resp BP Pulse Ox O2 Del Method O2 Flow Rate 98.8 F 88 18 139/75 H 95 Nasal Cannula 2 07/20/23 03:40 07/20/23 03:40 07/20/23 03:40 07/20/23 03:40 07/20/23 03:42 07/20/23 03:42 07/20/23 03:42 Oxygen Flow Rate (L/min) 2 Oxygen Delivery Method Nasal Cannula Weight: 217 lb 13.067 oz Body Mass Index (BMI) 30.4 Intake & Output: Intake and Output for Last 24 Hours 07/18/23 07/19/23 07/20/23 23:59 23:59 23:59 Intake Total 2651.67 / 2676.67 1113.33 / 1113.33 Output Total 785 / 785 225 / 225 Balance 1866.67 / 1891.67 888.33 / 888.33 Lab / Micro Data 07/20/23 06:42 07/20/23 06:42 Labs: Laboratory Results - last 24 hr 07/19/23 06:31: Sodium 136, Potassium 3.9, Chloride 106, Carbon Dioxide 24.0, Anion Gap 6, BUN 16, Creatinine 1.27, Estim Creat Clear Calc 68.55, Est GFR (MDRD) Af Amer 73, Est GFR (MDRD) Non-Af 60, BUN/Creatinine Ratio 12.6, Glucose 154 H, Calcium 8.3 L Rhythm Strip Rhythm Strip: Sinus Rhythm Rate: 96 Ectopy: None Physical Exam Const oriented x3 Resp normal respiratory effort GI GI Narrative: Mildly distended, operative dressing is clean dry and intact, soft, mild tenderness across lower abdominal quadrants with palpation Assessment & Plan Assessment/Plan (1) Colon obstruction: (2) Colon cancer: QUALIFIERS: Colon location: transverse Qualified Code(s): C18.4 - Malignant neoplasm of transverse colon PLAN: Plan The patient had a colon obstruction due to colon cancer. He is postoperative day 2 for exploratory laparotomy with extended right hemicolectomy with anastomosis. The patient's white count is now within normal limits and Dr. Stein confirmed that there was no contamination at the time of surgery. Therefore we will discontinue antibiotics today. It is noted that his hemoglobin has downtrended further today so we will watch this closely, however, and conferencing with he and his today he shares that he has required several units and transfusion for history of anemia and most recently has hovered around the hemoglobin of 9. It is likely that his hemoglobin of over 10 preop was artificially inflate imply dehydration. He is now urinating following his Brito catheter removal yesterday. His creatin ine is largely stable today. Continue IV fluids until tolerating a diet and passing gas. Patient remains clinically stable but without return of bowel function at this point. He is encouraged to continue ambulation. He is using chewing gum and is permitted to try some hard candy as well. We discussed the importance of pulmonary toilet as a means of reducing his risk for postoperative pulmonary complications. He does appear to require oxygen when sleeping based on continuous pulse oximetry trends. Charges/Coding Visit Charges Inpatient E&M: 27231 Subs Hosp L2
[2023-07-20 07:41] LABS: Absolute Neutrophil Count 8.7 X10^3/uL (2.0-7.7); Basophil# 0.03 X10^3/uL; Basophil% 0.3 % (0-1); Eosinophil# 0.08 X10^3/uL; Eosinophils% 0.8 % (0-5); Hematocrit 26.4 % (40-54); Hemoglobin 8.3 g/dL (13.0-16.5); Lymphocyte % 5.7 % (19-41); Mean Corp Hgb Conc 31.4 g/dL (32-36); Mean Corpuscular Hgb 25.7 pg (27.0-32.0); Mean Corpuscular Volume 81.7 fL (80-94); Mean Platelet Vol. 8.8 fl (6.2-12.0); Monocyte# 1.02 X10^3/uL; Monocyte% 9.8 % (0-10); NRBC Flagged by Analyzer 0 % (0-5); Neutrophil # 8.68 X10^3/uL (2.7-7.7); POSITIVE DIFFERENTIAL YES; Platelet Count 351 K/mm3 (150-450); RBC Distribution Width CV 14.9 % (11.6-14.6); RBC Distribution Width SD 44.1 fl (35.1-43.9); Red Blood Count 3.23 M/mm3 (4.6-6.2); White Blood Count 10.5 K/mm3 (4.4-11.0)
[2023-07-20 08:12] LABS: Anion Gap 6 (5-15); BUN 23 mg/dL (7-18); BUN/Creat Ratio 17.7 RATIO (10-20); Chloride 104 mmol/L (98-107); EST Glomerular Filtration Rate 59 mL/min (>60); Est Glom Filt Rate - Afr Amer 71 mL/min (>60); Estimated Creatinine Clearance 66.96 ml/min; Glucose 106 mg/dL (74-106); Potassium 3.9 mmol/L (3.5-5.1); Sodium Level 134 mmol/L (136-145)
[2023-07-20] MEDS: Docusate Sodium 100 MG Capsule PO ×2 (09:57→22:57)
[2023-07-21] VITALS (12 sets, daily range): BP systolic 165–173; BP diastolic 90–106; PULSE 88–110; RESP 16–20; TEMP 36.6–36.8; O2SAT 91–98
[2023-07-21 06:10] LABS: Absolute Lymphocyte Count 1.01 X10^3/uL (0.83-4.51); Absolute Neutrophil Count 7.5 X10^3/uL (2.0-7.7); Basophil# 0.07 X10^3/uL; Basophil% 0.7 % (0-1); Eosinophils% 3.1 % (0-5); Hematocrit 26.4 % (40-54); Hemoglobin 8.1 g/dL (13.0-16.5); Lymphocyte # 1.01 X10^3/ul (0.83-4.51); Lymphocyte % 10.3 % (19-41); Mean Corp Hgb Conc 30.7 g/dL (32-36); Mean Corpuscular Hgb 25.1 pg (27.0-32.0); Mean Corpuscular Volume 81.7 fL (80-94); Mean Platelet Vol. 8.8 fl (6.2-12.0); Monocyte# 0.83 X10^3/uL; Monocyte% 8.5 % (0-10); NRBC Flagged by Analyzer 0 % (0-5); Neutrophil # 7.49 X10^3/uL (2.7-7.7); Neutrophil % 76.8 % (47-70); Platelet Count 359 K/mm3 (150-450); RBC Distribution Width CV 14.5 % (11.6-14.6); RBC Distribution Width SD 43.1 fl (35.1-43.9); Red Blood Count 3.23 M/mm3 (4.6-6.2); White Blood Count 9.8 K/mm3 (4.4-11.0)
[2023-07-21 06:36] LABS: Anion Gap 6 (5-15); BUN 14 mg/dL (7-18); BUN/Creat Ratio 15.9 RATIO (10-20); Calcium,Total 8.1 mg/dL (8.5-10.1); Chloride 107 mmol/L (98-107); Creatinine, Serum 0.88 mg/dL (0.70-1.30); EST Glomerular Filtration Rate 92 mL/min (>60); Est Glom Filt Rate - Afr Amer 111 mL/min (>60); Estimated Creatinine Clearance 98.92 ml/min; Glucose 89 mg/dL (74-106); Magnesium 2.1 mg/dL (1.6-2.6); Potassium 3.6 mmol/L (3.5-5.1); Sodium Level 136 mmol/L (136-145)
[2023-07-21] MEDS: Acetaminophen 500 MG Tablet 1000 MG PO ×3 (06:40→21:56)
[2023-07-21] MEDS: Pantoprazole Sodium 40 MG Tablet PO (06:45)
[2023-07-21 07:32] LABS: Phosphorus 1.7 mg/dL (2.5-4.9)
--- NOTE | 2023-07-21 08:27 | PN.SURG_ITS ---
Subjective Subjective Patient seen and examined during AM rounds. He is found sitting out of bed in the chair. Nursing previously notified me that patient's blood pressure has been elevated. Patient's response to this information is that he must need to take some more cinnamon. He otherwise denies any return of bowel function and states that he had a difficult night because he was unable to find a comfortable position in bed. He does suggest that his abdominal pain is somewhat better. He also complains of some significant reflux and wishes that he had Tums available. Objective Data Objective Data Vital Signs: Vital Signs Temp Pulse Resp BP Pulse Ox O2 Del Method O2 Flow Rate 98.2 F 96 16 173/106 H 91 Room Air 2 07/21/23 06:34 07/21/23 06:34 07/21/23 06:34 07/21/23 06:34 07/21/23 06:34 07/21/23 06:34 07/20/23 08:08 Oxygen Flow Rate (L/min) 2 Oxygen Delivery Method Room Air Weight: 217 lb 13.067 oz Body Mass Index (BMI) 30.4 Intake & Output: Intake and Output for Last 24 Hours 07/19/23 07/20/23 07/21/23 23:59 23:59 23:59 Intake Total 2651.67 / 2676.67 3488.33 / 3488.33 Output Total 785 / 785 1225 / 1225 700 / 700 Balance 1866.67 / 1891.67 2263.33 / 2263.33 -675 / -675 Lab / Micro Data 07/21/23 05:47 07/21/23 05:47 Labs: Laboratory Results - last 24 hr 07/21/23 05:47: WBC 9.8, RBC 3.23 L, Hgb 8.1 L, Hct 26.4 L, MCV 81.7, MCH 25.1 L , MCHC 30.7 L, RDW Std Deviation 43.1, RDW Coeff of [place] 14.5, Plt Count 359, MPV 8.8, Immature Gran % (Auto) 0.600, Neut % (Auto) 76.8 H, Lymph % (Auto) 10.3 L, [place] % (Auto) 8.5, Eos % (Auto) 3.1, Baso % (Auto) 0.7, Absolute Neuts (auto) 7.5, Absolute Lymphs (auto) 1.01, Nucleated RBC % 0, Sodium 136, Potassium 3.6, Chloride 107, Carbon Dioxide 23.0, Anion Gap 6, BUN 14, Creatinine 0.88, Estim Creat Clear Calc 98.92, Est GFR (MDRD) Af Amer 111, Est GFR (MDRD) Non-Af 92, BUN/Creatinine Ratio 15.9, Glucose 89, Calcium 8.1 L, Phosphorus 1.7 L, Magnesium 2.1 Rhythm Strip Rhythm Strip: Sinus Rhythm Rate: 96 Ectopy: None Physical Exam Const oriented x3 and no apparent distress Resp normal respiratory effort GI GI Narrative: Abdominal dressing is taken down and patient's midline wound is examined. There Steri-Strips going across the wound and there is some very faint erythema just inferior to the umbilicus but otherwise it is well?appearing. Patient has only mild superficial tenderness with palpation. The abdomen is mildly distended. Assessment & Plan Assessment/Plan (1) Colon obstruction: (2) Colon cancer: QUALIFIERS: Colon location: transverse Qualified Code(s): C18.4 - Malignant neoplasm of transverse colon PLAN: Plan The patient had a colon obstruction due to colon cancer. He is postoperative day 3 for exploratory laparotomy with extended right hemicolectomy with anastomosis. The patient's white count remains within normal limits. Fortunately, patient's hemoglobin remained stable from yesterday and only trended to 8.1 from 8.3. It remains likely that his hemoglobin of over 10 preop was artificially inflate imply dehydration. He is now urinating freely and his creatinine appears to be back to baseline. Continue IV fluids until tolerating a diet and passing gas. Patient remains clinically stable but without return of bowel function at this point. He is encouraged to continue ambulation. He is using chewing gum and is permitted to try some hard candy as well. I am trialing a dose of Pepcid in addition to his scheduled Protonix to help manage his complaints of reflux. Additionally, I have given a one-time dose of metoprolol for his elevated blood pressure and mildly elevated heart rate. It is my hope that his pain control will improve and what ever element his pain is playing in this picture will lead to reduced pressures overall. However, it is possible he may require evaluation for hypertension ongoing. Charges/Coding Visit Charges Inpatient E&M: 07429 Subs Hosp L2
[2023-07-21] MEDS: Metoprolol Tartrate 5 MG/5 ML Vial IV (08:37)
[2023-07-21] MEDS: oxyCODONE 5 MG Tablet PO (08:37)
--- NOTE | 2023-07-21 08:56 | NURSING ---
dr molina at bedside and removed drstomer this am-small amount of serosang towards lower end on steristrips
[2023-07-21] MEDS: Famotidine 200 MG/20 ML MDV 20 MG in 0.9% Normal Saline (Pres. free 8 ML 300 MG IV (11:24)
[2023-07-21] MEDS: Sodium Phosphate/Na Biphos 21 MMOL in 0.9% Normal Saline (250mL Bag) 250 ML 84 MMOL IV (11:26)
[2023-07-21] MEDS: 0.9% Normal Saline (1000mL) 1,000 ML 100 ML IV ×2 (11:30→15:44)
[2023-07-21] MEDS: Docusate Sodium 100 MG Capsule PO ×2 (11:30→21:56)
--- NOTE | 2023-07-21 18:15 | NURSING ---
pt has ambulated frequently in hallway today-BS are normoactive x4, pt feels rumbling in abdomen but still denies any flatus-pt rates pain at 1/10 while resting in chair, using I.S.
[2023-07-22] VITALS (8 sets, daily range): BP systolic 156–180; BP diastolic 88–107; PULSE 81–93; RESP 16–18; TEMP 36.6–36.9; O2SAT 93–97
[2023-07-22] MEDS: 0.9% Normal Saline (1000mL) 1,000 ML 100 ML IV ×3 (01:29→21:34)
--- NOTE | 2023-07-22 04:48 | NURSING ---
Made Dr. Jack aware of BP no new orders at this time.
[2023-07-22 05:25] LABS: Absolute Lymphocyte Count 1.13 X10^3/uL (0.83-4.51); Absolute Neutrophil Count 5.6 X10^3/uL (2.0-7.7); Basophil# 0.06 X10^3/uL; Basophil% 0.8 % (0-1); Eosinophil# 0.29 X10^3/uL; Eosinophils% 3.8 % (0-5); Hematocrit 27.1 % (40-54); Hemoglobin 8.5 g/dL (13.0-16.5); Lymphocyte # 1.13 X10^3/ul (0.83-4.51); Lymphocyte % 14.8 % (19-41); Mean Corp Hgb Conc 31.4 g/dL (32-36); Mean Corpuscular Hgb 25.7 pg (27.0-32.0); Mean Corpuscular Volume 81.9 fL (80-94); Mean Platelet Vol. 8.7 fl (6.2-12.0); Monocyte# 0.56 X10^3/uL; Monocyte% 7.4 % (0-10); NRBC Flagged by Analyzer 0 % (0-5); Neutrophil # 5.55 X10^3/uL (2.7-7.7); Neutrophil % 72.9 % (47-70); Platelet Count 421 K/mm3 (150-450); RBC Distribution Width CV 14.6 % (11.6-14.6); RBC Distribution Width SD 43.5 fl (35.1-43.9); Red Blood Count 3.31 M/mm3 (4.6-6.2); White Blood Count 7.6 K/mm3 (4.4-11.0)
[2023-07-22 05:38] LABS: Anion Gap 8 (5-15); BUN 12 mg/dL (7-18); BUN/Creat Ratio 16.5 RATIO (10-20); Chloride 109 mmol/L (98-107); Creatinine, Serum 0.73 mg/dL (0.70-1.30); EST Glomerular Filtration Rate 114 mL/min (>60); Est Glom Filt Rate - Afr Amer 138 mL/min (>60); Estimated Creatinine Clearance 108.82 ml/min; Glucose 74 mg/dL (74-106); Potassium 3.6 mmol/L (3.5-5.1); Sodium Level 139 mmol/L (136-145)
[2023-07-22] MEDS: Acetaminophen 500 MG Tablet 1000 MG PO ×3 (06:21→18:04)
--- NOTE | 2023-07-22 08:55 | PN.SURG_ITS ---
Subjective Subjective Patient seen and examined during AM rounds. He is found sitting resting in bed this morning. Once again, today, nursing reports patient's blood pressure is elevated. A one-time dose of metoprolol was given yesterday and patient's blood pressure thereafter remained in the more normal range. Mr. Saldana states that he had a better night last night and slept well in the chair at bedside. He continues to complain of some lumbar back pain and the lack of support with the beds in the hospital. He shares that his abdominal pain discomfort is about the same as yesterday. Lastly he reports that the symptoms of acid reflux has not been as bad today. Objective Data Objective Data Vital Signs: Vital Signs Temp Pulse Resp BP Pulse Ox O2 Del Method O2 Flow Rate 98.5 F 83 16 180/107 H 94 Room Air 2 07/22/23 08:20 07/22/23 08:20 07/22/23 08:20 07/22/23 08:20 07/22/23 08:20 07/22/23 08:20 07/20/23 08:08 Oxygen Flow Rate (L/min) 2 Oxygen Delivery Method Room Air Weight: 217 lb 13.067 oz Body Mass Index (BMI) 30.4 Intake & Output: Intake and Output for Last 24 Hours 07/20/23 07/21/23 07/22/23 23:59 23:59 23:59 Intake Total 3488.33 / 3488.33 3121.33 / 3121.33 975 / 975 Output Total 1225 / 1225 700 / 700 Balance 2263.33 / 2263.33 2421.33 / 2421.33 975 / 975 Lab / Micro Data 07/22/23 04:30 07/22/23 04:30 Labs: Laboratory Results - last 24 hr 07/22/23 04:30: WBC 7.6, RBC 3.31 L, Hgb 8.5 L, Hct 27.1 L, MCV 81.9, MCH 25.7 L , MCHC 31.4 L, RDW Std Deviation 43.5, RDW Coeff of Ayaka 14.6, Plt Count 421, MPV 8.7, Immature Gran % (Auto) 0.300, Neut % (Auto) 72.9 H, Lymph % (Auto) 14.8 L, [place] % (Auto) 7.4, Eos % (Auto) 3.8, Baso % (Auto) 0.8, Absolute Neuts (auto) 5.6, Absolute Lymphs (auto) 1.13, Nucleated RBC % 0, Sodium 139, Potassium 3.6, Chloride 109 H, Carbon Dioxide 22.0, Anion Gap 8, BUN 12, Creatinine 0.73, Estim Creat Clear Calc 108.82, Est GFR (MDRD) Af Amer 138, Est GFR (MDRD) Non-Af 114, BUN/Creatinine Ratio 16.5, Glucose 74, Calcium 8.0 L Rhythm Strip Rhythm Strip: Sinus Rhythm Rate: 96 Ectopy: None Physical Exam Const oriented x3 and no apparent distress Resp normal respiratory effort GI GI Narrative: There is some blistering, superficially, on either side of patient's laparotomy adjacent to his Steri-Strips and appears to be a reaction to the adhesive. He describes some maame-incisional itching but there is no excoriation. Patient has only mild superficial tenderness with palpation. The abdomen is mildly distended. Assessment & Plan Assessment/Plan (1) Colon obstruction: (2) Colon cancer: QUALIFIERS: Colon location: transverse Qualified Code(s): C18.4 - Malignant neoplasm of transverse colon PLAN: Plan The patient had a colon obstruction due to colon cancer. He is postoperative day 4 for exploratory laparotomy with extended right hemicolectomy with anastomosis. The patient's white count remains within normal limits. Patient's hemoglobin is now up trending (8.5 from 8.1). It remains likely that his hemoglobin of over 10 preop was artificially inflate imply dehydration. He continues to urinate freely and his creatinine is back to baseline. Continue IV fluids until tolerating a diet and passing gas. Patient remains clinically stable but without return of bowel function at this point. He is encouraged to continue ambulation; he shares that he took 7 walks yesterday. He is using chewing gum and is permitted to try some hard candy as well. Acid reflux noted yesterday is improved today so we will continue scheduled Protonix. Once again, I have ordered a one-time dose of metoprolol for patient's significant hypertension and mild tachycardia. Mr. Saldana is surprised by his vital signs and therefore I find it likely that this is still attributable to his acute stress response, however, it is possible he may require evaluation for hypertension ongoing.
[2023-07-22] MEDS: Metoprolol Tartrate 5 MG/5 ML Vial IV (09:06)
[2023-07-22] MEDS: Docusate Sodium 100 MG Capsule PO ×2 (09:09→21:34)
[2023-07-22] MEDS: 0.9% Saline Lock 10 ML Syringe IV (09:09)
[2023-07-22] MEDS: hydrALAZINE 20 MG/ML Vial 10 MG IV (10:54)
[2023-07-23] VITALS (7 sets, daily range): BP systolic 158–181; BP diastolic 88–100; PULSE 86–104; RESP 16–18; TEMP 36.4–37.1; O2SAT 95–96
[2023-07-23] MEDS: Acetaminophen 500 MG Tablet 1000 MG PO ×3 (05:35→18:01)
[2023-07-23] MEDS: 0.9% Normal Saline (1000mL) 1,000 ML 100 ML IV (05:39)
[2023-07-23] MEDS: hydrALAZINE 20 MG/ML Vial 10 MG IV (05:45)
[2023-07-23 06:21] LABS: Absolute Lymphocyte Count 1.28 X10^3/uL (0.83-4.51); Absolute Neutrophil Count 5.4 X10^3/uL (2.0-7.7); Basophil# 0.04 X10^3/uL; Basophil% 0.5 % (0-1); Eosinophil# 0.18 X10^3/uL; Eosinophils% 2.4 % (0-5); Hematocrit 28.4 % (40-54); Hemoglobin 8.7 g/dL (13.0-16.5); Lymphocyte # 1.28 X10^3/ul (0.83-4.51); Lymphocyte % 17.2 % (19-41); Mean Corp Hgb Conc 30.6 g/dL (32-36); Mean Corpuscular Hgb 24.9 pg (27.0-32.0); Mean Corpuscular Volume 81.1 fL (80-94); Mean Platelet Vol. 8.4 fl (6.2-12.0); Monocyte% 6.7 % (0-10); NRBC Flagged by Analyzer 0 % (0-5); Neutrophil # 5.41 X10^3/uL (2.7-7.7); Neutrophil % 72.7 % (47-70); Platelet Count 448 K/mm3 (150-450); RBC Distribution Width CV 14.6 % (11.6-14.6); RBC Distribution Width SD 43.1 fl (35.1-43.9); White Blood Count 7.5 K/mm3 (4.4-11.0)
[2023-07-23 06:47] LABS: Anion Gap 7 (5-15); BUN 10 mg/dL (7-18); BUN/Creat Ratio 16.4 RATIO (10-20); Calcium,Total 8.1 mg/dL (8.5-10.1); Chloride 110 mmol/L (98-107); Creatinine, Serum 0.61 mg/dL (0.70-1.30); EST Glomerular Filtration Rate 141 mL/min (>60); Est Glom Filt Rate - Afr Amer 170 mL/min (>60); Estimated Creatinine Clearance 108.82 ml/min; Glucose 82 mg/dL (74-106); Potassium 3.7 mmol/L (3.5-5.1); Sodium Level 137 mmol/L (136-145)
--- NOTE | 2023-07-23 07:36 | PN.SURG_ITS ---
Subjective Subjective Patient reports he is passing flatus. He tolerated some clears yesterday. His pain is well-controlled on Tylenol. Objective Data Objective Data Vital Signs: Vital Signs Temp Pulse Resp BP Pulse Ox O2 Del Method O2 Flow Rate 98.0 F 100 18 170/100 H 96 Room Air 2 07/23/23 04:30 07/23/23 05:45 07/23/23 04:30 07/23/23 05:45 07/23/23 04:30 07/23/23 04:30 07/20/23 08:08 Oxygen Flow Rate (L/min) 2 Oxygen Delivery Method Room Air Weight: 217 lb 13.067 oz Body Mass Index (BMI) 30.4 Intake & Output: Intake and Output for Last 24 Hours 07/21/23 07/22/23 07/23/23 23:59 23:59 23:59 Intake Total 3121.33 / 3121.33 3123.33 / 3123.33 993.33 / 993.33 Output Total 700 / 700 Balance 2421.33 / 2421.33 3123.33 / 3123.33 993.33 / 993.33 Lab / Micro Data 07/23/23 05:49 07/23/23 05:49 Labs: Laboratory Results - last 24 hr 07/23/23 05:49: WBC 7.5, RBC 3.50 L, Hgb 8.7 L, Hct 28.4 L, MCV 81.1, MCH 24.9 L , MCHC 30.6 L, RDW Std Deviation 43.1, RDW Coeff of [place] 14.6, Plt Count 448, MPV 8.4, Immature Gran % (Auto) 0.500, Neut % (Auto) 72.7 H, Lymph % (Auto) 17.2 L, [place] % (Auto) 6.7, Eos % (Auto) 2.4, Baso % (Auto) 0.5, Absolute Neuts (auto) 5.4, Absolute Lymphs (auto) 1.28, Nucleated RBC % 0, Sodium 137, Potassium 3.7, Chloride 110 H, Carbon Dioxide 20.0 L, Anion Gap 7, BUN 10, Creatinine 0.61 L, Estim Creat Clear Calc 108.82, Est GFR (MDRD) Af Amer 170, Est GFR (MDRD) Non-Af 141, BUN/Creatinine Ratio 16.4, Glucose 82, Calcium 8.1 L Rhythm Strip Rhythm Strip: Sinus Rhythm Rate: 96 Ectopy: None Physical Exam Const oriented x3 and no apparent distress Resp normal respiratory effort GI soft to palpation Inspection: Negative for abdominal distention Palpation: tender Assessment & Plan Assessment/Plan (1) Colon obstruction: PLAN: Patient tolerated clears and is passing flatus. I will advance him to a transitional diet and stop his IV fluids biliary the patient does have some mild pitting edema of his extremities. The the patient may be mildly fluid overloaded and that may be contributing to his hypertension. I am going to order him a dose of Lasix today and stop his IV fluids. I will advance him to a transitional diet. I will also order some ibuprofen to supplement the Tylenol. Encouraged ambulation and incentive spirometer and if he tolerates a diet and his blood pressure comes down with diuresis I will discharge him home tomorrow. Moo Dumont MD Pager: [facility] [address] [place] [address] [address] [place] [phone] Office:
[2023-07-23] MEDS: Docusate Sodium 100 MG Capsule PO ×2 (08:30→20:44)
[2023-07-23] MEDS: Furosemide 40 MG Tablet PO (08:30)
--- NOTE | 2023-07-23 23:58 | NURSING ---
Patient refusing to take hydralazine at this time. Education provided. This RN told patient that will reassess BP later tonight.
[2023-07-24] MEDS: Acetaminophen 500 MG Tablet 1000 MG PO ×3 (00:02→12:32)
[2023-07-24] MEDS: Pantoprazole Sodium 40 MG Tablet PO (00:05)
[2023-07-24 04:12] VITALS: BP 159/78; PULSE 82; RESP 18; TEMP 36.9; O2SAT 95
[2023-07-24 07:31] VITALS: BP 154/88; PULSE 86; RESP 14; TEMP 36.8; O2SAT 95
--- NOTE | 2023-07-24 08:36 | PCM.PN.SRG ---
Subjective Subjective Patient is doing well and tolerating transitional diet. He reports he is passing flatus. No nausea or vomiting. His biggest complaint was acid reflux last night. Objective Data Objective Data Vital Signs: Vital Signs Temp Pulse Resp BP Pulse Ox O2 Del Method O2 Flow Rate 98.3 F 86 14 154/88 H 95 Room Air 2 07/24/23 07:31 07/24/23 07:31 07/24/23 07:31 07/24/23 07:31 07/24/23 07:31 07/24/23 07:31 07/20/23 08:08 Oxygen Flow Rate (L/min) 2 Oxygen Delivery Method Room Air Weight: 217 lb 13.067 oz Body Mass Index (BMI) 30.4 Intake & Output: Intake and Output for Last 24 Hours 07/22/23 07/23/23 07/24/23 23:59 23:59 23:59 Intake Total 3123.33 / 3123.33 993.33 / 993.33 Output Total 1750 / 2350 1200 / 1200 Balance 3123.33 / 3123.33 -756.67 / -1356.67 -1200 / -1200 Lab / Micro Data 07/23/23 05:49 07/23/23 05:49 Rhythm Strip Rhythm Strip: Sinus Rhythm Rate: 96 Ectopy: None Physical Exam Const oriented x3 and no apparent distress Resp clear to auscultation bilaterally GI soft to palpation and non-tender Assessment & Plan Assessment/Plan (1) Colon obstruction: PLAN: The patient had a colon cancer which was obstructing and had extended right hemicolectomy. He is doing well and tolerating transitional diet. I will advance him to a regular diet. His incision is clean dry and intact. There was some blistering from the Steri-Strips but a lot of those were removed yesterday. There is no erythema. He is only taking Tylenol for pain but I will give him some oxycodone to go home on. As long as he tolerates diet and is feeling well I will discharge him home this afternoon. Moo Dumont MD Pager: [facility] [address] [place] [address], [address] [place] [address] Office:
[2023-07-24 08:55] VITALS: BP 175/92; PULSE 92; RESP 16; TEMP 36.6; O2SAT 97
--- NOTE | 2023-07-24 08:59 | PCM.DC.SUM ---
Documented by User: Yara ENCISO PA-C 07/24/23 10:37 Providers Date of Admission: 07/19/23 Primary Care Physician: Dr. Twan Juarez MD Reason For Visit: abd pain Diagnosis Discharge Diagnosis (1) Colon obstruction: Status: Acute Code(s): K56.609 - Unspecified intestinal obstruction, unspecified as to partial versus complete obstruction Medications at Discharge Home Medications ascorbic acid (vitamin C) 1,000 mg tablet (C-1000) 2 g PO DAILY 07/18/23 cholecalciferol (vitamin D3) 25 mcg (1,000 unit) capsule (Vitamin D3) 125 mcg PO DAILY 07/18/23 iron 50 mg iron tablet 1 tab PO DAILY 07/18/23 pyridoxine (vitamin B6) 100 mg tablet (Vitamin B-6) 100 mg PO DAILY 07/18/23 selenium 200 mcg capsule 200 mcg PO DAILY 07/18/23 oxycodone 5 mg tablet 5 mg PO Q6H PRN PRN Pain Score 4-10 3 days #10 tabs 07/24/23 pantoprazole 40 mg tablet,delayed release 40 mg PO DAILY indigestion #30 tabs 07/24/23 Hospital Course Operations colectomy (Laparotomy with right hemicolectomy and ileocolic anastomosis) and - Summary of Care Provided Minutes Spent on Discharge: 35 Hospital Course: Patient presented secondary to increased abdominal pain. Patient had a known colon cancer and was scheduled for a colectomy at [facility] on 07/29. CT scan of the ab/pel demonstrated partially obstructing mass in the proximal transverse colon consistent with a carcinoma, mesenteric adenopathy and moderate amount of ascites. Dr. Dumont performed a Laparotomy with right hemicolectomy and ileocolic anastomosis on 07/19/23. Patient tolerated the procedure well. It was noted that the colon was gangrenous. Patient had an uneventful hospitalization. Upon discharge, patient had a return of bowel function. He was tolerating a transitional diet well without nausea, vomiting. He denies a fever. He notes minimal abdominal soreness. Weight / BMI Weight Weight: 217 lb 13.067 oz Body Mass Index (BMI) 30.4 ABG / Lab / Microbiology Data 07/23/23 05:49 07/23/23 05:49 D/C Instructions Discharge Diet: Light diet - advance as tolerated (Avoid raw veggies, corn, and tough meats for 1 month) Discharge Activity: May Not Drive (for 5 days or while on narcotic pain medication) and May Shower May shower in (days): 1 Lifting Restrictions: no lifting greater than 15 pounds for 6 weeks from surgery Discharge Plan Admission Admit Date/Time: 07/19/23 02:35 Primary Reason for Your Visit: Colon obstruction secondary to known colon cancer Attending Provider: Moo Dumont Primary Care Provider: Twan Juarez Instructions Additional Instructions / Restrictions: Colectomy Diet ? Start light with soups and soft bland foods. You may slowly advance to regular diet. AVOID RAW VEGGIES, CORN AND OTHER TOUGH MEATS TO AVOID IRRITATION AT THE INTERNAL SUTURE SITE Activity ? You may drive in 5 days but not while taking narcotic pain medication. ? I encourage walking. You may go up steps, one at a time. ? Do not swim or use hot tubs for 2 weeks. Lifting ? You may lift up to 15 pounds for 6 weeks from surgery. Following that gradually return to regular lifting. Dressings/Incision ? You may shower OVER your plastic dressings ? Do NOT tub bathe for 1 week ? When plastic dressings are removed, you will find steri strips. It is okay to continue showering with them in place, pat them dry. ? You may remove steri-strips after 1 week from your surgery. We recommend getting them soaking wet for easier removal. Medications ? Anesthesia used during surgery and pain medications may cause constipation. I recommend initiating on the day of surgery a fiber supplement like, Metamucil, Citrucel, FiberCon, Benefiber, or a generic form of these medications. 1 heaping tablespoon in water daily. You may continue to utilize any bowel regimen or oral laxatives that you routinely take. You may also take Miralax if you are struggling with constipation. Recommend 1 tablespoon in an 8 ounce glass of water or other beverage. ? As long as you are not intolerant to Tylenol, acetaminophen, ibuprofen, Motrin, Advil, Aleve, or similar medications, I would recommend transitioning to these [id number] medicines as soon as possible instead of continued use of narcotic pain medication. Follow up ? You should call [facility] soon after surgery, at [phone] option 1 to make a follow up appointment for 7 days after your surgery. Discharge Orders/Prescriptions Prescriptions: New oxycodone 5 mg Tablet 5 mg PO Q6H PRN PRN (Reason: Pain Score 4-10) 3 Days Qty: 10 0RF Continued cholecalciferol (vitamin D3) [Vitamin D3] 25 mcg (1,000 unit) capsule 125 mcg PO DAILY selenium 200 mcg capsule 200 mcg PO DAILY ascorbic acid (vitamin C) [C-1000] 1,000 mg tablet 2 g PO DAILY iron 50 mg iron tablet 1 tab PO DAILY pyridoxine (vitamin B6) [Vitamin B-6] 100 mg tablet 100 mg PO DAILY Changed pantoprazole 40 mg tablet,delayed release (DR/EC) 40 mg PO DAILY Qty: 30 2RF Referrals / Follow Up: Moo Dumont MD [Med Staff - Active Staff] - (Please call to schedule an appointment for 7 days from discharge) [facility] Doctor,Out of [Non-Staff] - Disposition Disposition (needs filled in before D/C Order can be placed): Home, Self Care Charges/Coding Visit Charges Inpatient E&M: 86267 Disch Hosp >30min (no charge; post-op) Documented by User: Dr. Moo Dumont MD 07/24/23 09:22 Providers Date of Admission: 07/19/23 Reason For Visit: abd pain Diagnosis Discharge Diagnosis (1) Colon obstruction: Status: Acute Code(s): K56.609 - Unspecified intestinal obstruction, unspecified as to partial versus complete obstruction Medications at Discharge Home Medications ascorbic acid (vitamin C) 1,000 mg tablet (C-1000) 2 g PO DAILY 07/18/23 cholecalciferol (vitamin D3) 25 mcg (1,000 unit) capsule (Vitamin D3) 125 mcg PO DAILY 07/18/23 iron 50 mg iron tablet 1 tab PO DAILY 07/18/23 pyridoxine (vitamin B6) 100 mg tablet (Vitamin B-6) 100 mg PO DAILY 07/18/23 selenium 200 mcg capsule 200 mcg PO DAILY 07/18/23 oxycodone 5 mg tablet 5 mg PO Q6H PRN PRN Pain Score 4-10 3 days #10 tabs 07/24/23 pantoprazole 40 mg tablet,delayed release 40 mg PO DAILY indigestion #30 tabs 07/24/23 ABG / Lab / Microbiology Data 07/23/23 05:49 07/23/23 05:49 D/C Instructions Discharge Diet: Light diet - advance as tolerated Discharge Activity: May Not Drive (for 3-4 days) and May Shower Lifting Restrictions: 15 lbs for 6 weeks Additional Activity Instructions: Alternate ibuprofen and Tylenol for pain, oxycodone for breakthrough Call your doctor if your incision/area has: Continuous Slow Oozing, Sudden Increased Bleeding, Increased Pain/ Swelling, Increased Redness, Foul Smelling Discharge and Swelling at the incision site Call your doctor if you observe: Fever of 101 or Higher and Inability to have a bowel movement Cleanse incision/area with: Soap & Water Please Follow Up With: Moo Dumont MD When: Please call to schedule 1 week follow up appointment. [phone] Meaningful Use Info Meaningful Use Diagnoses (Choose all that apply): None applicable Discharge Plan Admission Admit Date/Time: 07/19/23 02:35 Primary Reason for Your Visit: Colon obstruction secondary to known colon cancer Attending Provider: Moo Dumont Primary Care Provider: Twan Juarez Instructions Additional Instructions / Restrictions: Colectomy Diet ? Start light with soups and soft bland foods. You may slowly advance to regular diet. AVOID RAW VEGGIES, CORN AND OTHER TOUGH MEATS TO AVOID IRRITATION AT THE INTERNAL SUTURE SITE Activity ? You may drive in 5 days but not while taking narcotic pain medication. ? I encourage walking. You may go up steps, one at a time. ? Do not swim or use hot tubs for 2 weeks. Lifting ? You may lift up to 15 pounds for 6 weeks from surgery. Following that gradually return to regular lifting. Dressings/Incision ? You may shower OVER your plastic dressings ? Do NOT tub bathe for 1 week ? When plastic dressings are removed, you will find steri strips. It is okay to continue showering with them in place, pat them dry. ? You may remove steri-strips after 1 week from your surgery. We recommend getting them soaking wet for easier removal. Medications ? Anesthesia used during surgery and pain medications may cause constipation. I recommend initiating on the day of surgery a fiber supplement like, Metamucil, Citrucel, FiberCon, Benefiber, or a generic form of these medications. 1 heaping tablespoon in water daily. You may continue to utilize any bowel regimen or oral laxatives that you routinely take. You may also take Miralax if you are struggling with constipation. Recommend 1 tablespoon in an 8 ounce glass of water or other beverage. ? As long as you are not intolerant to Tylenol, acetaminophen, ibuprofen, Motrin, Advil, Aleve, or similar medications, I would recommend transitioning to these [id number] medicines as soon as possible instead of continued use of narcotic pain medication. Follow up ? You should call [facility] soon after surgery, at [phone] option 1 to make a follow up appointment for 7 days after your surgery. Discharge Orders/Prescriptions Prescriptions: New oxycodone 5 mg Tablet 5 mg PO Q6H PRN PRN (Reason: Pain Score 4-10) 3 Days Qty: 10 0RF Continued cholecalciferol (vitamin D3) [Vitamin D3] 25 mcg (1,000 unit) capsule 125 mcg PO DAILY selenium 200 mcg capsule 200 mcg PO DAILY ascorbic acid (vitamin C) [C-1000] 1,000 mg tablet 2 g PO DAILY iron 50 mg iron tablet 1 tab PO DAILY pyridoxine (vitamin B6) [Vitamin B-6] 100 mg tablet 100 mg PO DAILY Changed pantoprazole 40 mg tablet,delayed release (DR/EC) 40 mg PO DAILY Qty: 30 2RF Referrals / Follow Up: Moo Dumont MD [Med Staff - Active Staff] - (Please call to schedule an appointment for 7 days from discharge) [facility] Doctor,Out of [Non-Staff] - Disposition Disposition (needs filled in before D/C Order can be placed): Home, Self Care
--- NOTE | 2023-07-24 10:35 | CASEMGMT ---
RN CM into pt room, pt states he is ready for dc today. He denies any need for therapy. Pt and aware that the rx are being sent to [facility]. Pt denies any homegoing needs.
--- NOTE | 2023-07-24 11:13 | CASEMGMT ---
Social Work SW on Sunday completed LW/POA forms w/pt, gave pt originals and copies and a copy was placed on the chart. JANICE Cohen
--- NOTE | 2023-07-24 11:18 | PHA.DC_ITS ---
Pharmacy [facility] has performed discharge medication reconciliation and counseling for this patient. The patient's discharge medication list was reviewed for discrepancies and discrepancies were resolved. The patient was counseled on the following discharge medications and changes in medications for homegoing were reviewed. The Reason for Use, instructions for use, and potential side effects were reviewed for all new medications. The patient's questions regarding all of their medications were answered. 1. Oxycodone 5 mg PO Q6H PRN pain The patient was able to verbally demonstrate an understanding of their discharge medications. Medications at Discharge Home Medications ascorbic acid (vitamin C) 1,000 mg tablet (C-1000) 2 g PO DAILY 07/18/23 cholecalciferol (vitamin D3) 25 mcg (1,000 unit) capsule (Vitamin D3) 125 mcg PO DAILY 07/18/23 iron 50 mg iron tablet 1 tab PO DAILY 07/18/23 pyridoxine (vitamin B6) 100 mg tablet (Vitamin B-6) 100 mg PO DAILY 07/18/23 selenium 200 mcg capsule 200 mcg PO DAILY 07/18/23 oxycodone 5 mg tablet 5 mg PO Q6H PRN PRN Pain Score 4-10 3 days #10 tabs 07/24/23 pantoprazole 40 mg tablet,delayed release 40 mg PO DAILY indigestion #30 tabs 07/24/23
== END 2023-07-24 13:11 | disposition home or self-care (01) | DRG 331 ==
LOC: ED 22:14 → SDC 22:48 → MS3 23:54
PROVIDERS: Surgery; Admitting Provider Surgery; Emergency Provider Emergency Medicine; PCP Family Medicine; Referring Provider Surgery; Visit Provider Surgery
DX: C18.4 Malignant neoplasm of transverse colon (principal); K21.9 Gastro-esophageal reflux disease without esophagitis; R03.0 Elevated blood-pressure reading, without diagnosis of hypertension; R60.0 Localized edema
CPT/HCPCS: 36415; 74177; 80048; 80053; 81002; 83690; 83735; 84100; 85025; 85027; 85610; 86850; 86900; 86901; 88309; 88341; 88342; 93005; 97116; 97162; 97530; 97802; 97803; 99284; J7030; J7050; J7120; Q9967; A4216; J2405; J3490

== ENCOUNTER → 2024-07-18 | Outpatient (CLI) | payer SELFPAY ==
--- NOTE | 2024-07-18 12:28 | CT_ITS ---
PROCEDURE: CT of the abdomen/pelvis with IV contrast. 07/18/2024 REASON FOR EXAM: History of colon cancer. TECHNIQUE: After the administration of 93 cc Isovue 370 IV contrast was administered, contiguous axial CT images were obtained through the abdomen/pelvis. Sagittal and coronal reformats were created. One or more dose reduction techniques were used (e.g., Automated exposure control, adjustment of the mA and/or kV according to patient size, use of iterative reconstruction technique. RADIATION DOSE SUMMARY: DLP: 1285.56 mGycm COMPARISON: None available FINDINGS: Bones are osteopenic with moderate degenerative changes in the spine. Posterior decompression of the mid to lower lumbar spine. No gross bony destructive lesion of the abdomen/pelvis. Lower ribs intact. Heart is not enlarged. No sizable pericardial effusion. Lower lungs clear. Patchy wall thickening of the stomach may be due to lack of distention versus peristalsis. The gallbladder is collapsed. No calcified gallstones or abnormal dilation of the biliary tree. The portal vein is patent. Minimal wall thickening of the distal esophagus may be due to a tiny hiatal hernia. The abdominal aorta is tortuous, normal in caliber. No focal abnormality of the urinary bladder. No large abdominal wall defect. Tiny fat containing inguinal hernias. The liver, adrenal glands, spleen, and pancreas show no specific abnormality. The kidneys are symmetric in size and enhancement. No solid renal mass or right obstructive uropathy. Dilation of the mid to distal left ureter up to 2.1 cm could be due to peristalsis or distal stricture. No obstructing lesion or radiopaque calculus of the distal left ureter is demonstrated. There has been prior right hemicolectomy. No abnormally dilated bowel segments or free intraperitoneal air. Mildly enlarged heterogeneous appearance of the prostate gland. Scattered patchy wall thickening of the colon may be due to lack of distention versus peristalsis. There is moderate stool in the colon. No abdominal/pelvic adenopathy or ascites. CT/Abdomen/Pelvis W IV Cont ONLY IMPRESSION: No acute findings or evidence of recurrent/progressive disease in the abdomen/p natalia. Prior right hemicolectomy. There is 2.1 cm dilation of the mid to distal left ureter, without evidence of definite obstructing lesion or distal calculus. The appearance may be due to peristalsis. Reading [facility]
[2024-07-18 12:48] LABS: Absolute Lymphocyte Count 1.13 X10^3/uL (0.83-4.51); Basophil# 0.05 X10^3/uL; Basophil% 1.1 % (0-1); Eosinophil# 0.07 X10^3/uL; Eosinophils% 1.5 % (0-5); Hemoglobin 13.3 g/dL (13.0-16.5); Lymphocyte # 1.13 X10^3/ul (0.83-4.51); Lymphocyte % 23.8 % (19-41); Mean Corp Hgb Conc 35.9 g/dL (32-36); Mean Corpuscular Hgb 31.8 pg (27.0-32.0); Mean Corpuscular Volume 88.5 fL (80-94); Mean Platelet Vol. 9.7 fl (6.2-12.0); Monocyte# 0.53 X10^3/uL; Monocyte% 11.2 % (0-10); NRBC Flagged by Analyzer 0 % (0-5); Neutrophil # 2.95 X10^3/uL (2.7-7.7); Neutrophil % 62.2 % (47-70); Platelet Count 190 K/mm3 (150-450); RBC Distribution Width CV 12.8 % (11.6-14.6); Red Blood Count 4.18 M/mm3 (4.6-6.2); White Blood Count 4.7 K/mm3 (4.4-11.0)
[2024-07-18 13:24] LABS: ALB/GLOB Ratio 1.5 RATIO (0.9-2.4); AST(SGOT) 21 U/L (<=37); Alanine Aminotransfer ALT/SGPT 22 U/L (<=46); Albumin, Serum 4.1 g/dL (3.4-4.8); Alkaline Phosphatase 57 U/L (40-129); Anion Gap 10 (5-15); BUN 23 mg/dL (4-19); BUN/Creat Ratio 21.6 RATIO (10-20); Calcium,Total 9.6 mg/dL (7.6-11.0); Carbon Dioxide 24.9 mmol/L (21.0-32.0); Chloride 103 mmol/L (98-108); Creatinine, Serum 1.04 mg/dL (0.70-1.20); EST Glomerular Filtration Rate 79 (>60); Globulin 2.8 g/dL (2.2-4.2); Glucose 89 mg/dL (70-99); LDH 162 U/L (87-241); Potassium 4.7 mmol/L (3.3-5.1); Protein, Total 6.9 g/dL (5.9-8.4); Sodium Level 138 mmol/L (133-145); Total Bilirubin 0.23 mg/dL (0.00-1.30)
[2024-07-20 07:06] LABS: Carcinoembryonic Antigen 2.9 ng/mL (0.0-4.7)
== END | disposition home or self-care (01) ==
LOC: CT 12:18
PROVIDERS: PCP Family Medicine; Referring Provider Internal Medicine Medical Oncology; Visit Provider Internal Medicine Medical Oncology
DX: C18.9 Malignant neoplasm of colon, unspecified (principal); C77.2 Secondary and unspecified malignant neoplasm of intra-abdominal lymph nodes
CPT/HCPCS: 36415; 74177; 80053; 82378; 83615; 85025; Q9967; A4216